=== PATIENT | female | born 1955 | race African-American/Black ===

== ENCOUNTER 2022-01-25 04:41 | Day surgery (SDC) | payer OTHER ==
[2022-01-19 14:04] VITALS: BMI 35.7
[2022-01-25 09:38] VITALS: TEMP 97.5
[2022-01-25 10:02] VITALS: BP 123/88; PULSE 64
== END 2022-01-25 10:17 | disposition home or self-care (01) ==
LOC: JASU-ENDO 04:41
PROVIDERS: ATTEND Internal Medicine Gastroenterology
PROC: 0DJD8ZZ Inspection of Lower Intestinal Tract, Via Natural or Artificial Opening Endoscopic (ICD-10-PCS; principal; 2022-01-25 08:45)
DX: Z12.11 Encounter for screening for malignant neoplasm of colon (principal); K64.8 Other hemorrhoids; K57.30 Diverticulosis of large intestine without perforation or abscess without bleeding

== ENCOUNTER 2022-01-31 05:39 | Emergency (ER) | payer OTHER ==
[2022-01-31 06:19] VITALS: BP 137/82; PULSE 76; TEMP 98.7; BMI 34.6
[2022-01-31] MEDS ORDERED: LIDOCAINE 5% TOPICAL PATCH TP ONE (07:27)
[2022-01-31] MEDS ORDERED: ACETAMINOPHEN 325 MG TABLET (FP) PO ONE (07:27)
[2022-01-31] MEDS ORDERED: METHOCARBAMOL 750 MG TABLET PO ONE (07:27)
[2022-01-31] MEDS ORDERED: IBUPROFEN 400 MG TABLET (FP) PO ONE ×2 (07:28→07:32)
[2022-01-31] MEDS ORDERED: METHOCARBAMOL 500 MG TABLET ONE (07:31)
[2022-01-31] MEDS ORDERED: LIDOCAINE 5% TOPICAL PATCH ONE (07:32)
[2022-01-31] MEDS ORDERED: ACETAMINOPHEN 325 MG TABLET (FP) ONE (07:32)
[2022-01-31 08:48] LABS: EPI CELLS >36 /uL (0-25.1); HYALINE CASTS 3 /uL (0-3.1); PH,URINE 7.5 (5.0-8.0); URINE APPEARANCE CLEAR; URINE BACTERIA 21 /uL (0-1359); URINE BILIRUBIN NEGATIVE (NEGATIVE); URINE COLOR YELLOW; URINE GLUCOSE (UA) NEGATIVE (NEGATIVE); URINE KETONE TRACE (NEGATIVE); URINE LEUK ESTERASE 1+ (NEGATIVE); URINE NITRITE NEGATIVE (NEGATIVE); URINE PROTEIN 2+ (NEGATIVE); URINE RBC 1374 /uL (0-23.9); URINE WBC 56 /uL (0-25.8)
[2022-01-31] MEDS ORDERED: CEPHALEXIN MONOHYDRATE 500 MG CAPSULE (UD) PO ONE (08:52)
[2022-01-31] MEDS ORDERED: LIDOCAINE PATCH REMOVAL MC ONE (19:00)
== END 2022-01-31 09:03 | disposition home or self-care (01) ==
LOC: JER 05:39
DX: M54.50 Low back pain, unspecified (principal)
CPT/HCPCS: 81003; 93005; 93010; 99284-25